=== PATIENT | male | born 1995 | race Caucasian/White ===

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

== ENCOUNTER 2018-01-29 20:57 | Emergency (ER) | payer SELFPAY ==
[~2018-01-29] VITALS: Ht 167.6 cm; Wt 49.9 kg
[2018-01-29 21:11] VITALS: Ht 167.6 cm; Wt 49.9 kg
[2018-01-29 22:12] LABS: UDS - AMPHET NEGATIVE QUAL (NEGATIVE); UDS - BARB NEGATIVE QUAL (NEGATIVE); UDS - BENZO NEGATIVE QUAL (NEGATIVE); UDS - COCAINE NEGATIVE QUAL (NEGATIVE); UDS - OPIATE NEGATIVE QUAL (NEGATIVE); UDS - PCP NEGATIVE QUAL (NEGATIVE); UDS - THC NEGATIVE QUAL (NEGATIVE)
[2018-01-29 22:18] LABS: APPEARANCE CLEAR (CLEAR); BILIRUBIN NEGATIVE (NEGATIVE); COLOR YELLOW (YELLOW); GLUCOSE NEGATIVE (NEGATIVE); KETONE NEGATIVE (NEGATIVE); NITRITE NEGATIVE (NEGATIVE); PROTEIN NEGATIVE (NEGATIVE); SPECIFIC GRAVITY 1.015 (1.005-1.020); UROBILINOGEN NORMAL (NORMAL)
[2018-01-29 22:21] LABS: BASOPHILS 0.3 % (0-2); EOSINOPHILS 0.6 % (0-7); HEMATOCRIT 41.8 % (42.0-54.0); HEMOGLOBIN 14.6 g/dL (13.5-17.5); IMMATURE GRANULOCYTES 0.2 % (0-5); LYMPHOCYTES 8.9 % (15-50); MCH 31.5 pg (26.0-34.0); MCHC 34.9 g/dL (31.0-37.0); MCV 90.3 fL (80.0-100.0); MEAN PLATELET VOLUME 10.2 fL (7.4-10.4); MONOCYTES 5.2 % (2-11); NEUTROPHILS 84.8 % (40-80); PLATELET COUNT 231 10x3/uL (130-400); RBC 4.63 10x6/uL (4.20-6.10); RDW 12.8 % (11.5-14.5); WBC 16.2 10x3/uL (4.8-10.8)
[2018-01-29 22:42] LABS: CALC OSMOLALITY 276 mosm/kg (275-300); CALCIUM 9.1 mg/dL (8.5-10.1); CARBON DIOXIDE 28.4 mmol/L (21.0-32.0); CHLORIDE - SERUM 104 mmol/L (98-107); GLUCOSE 103 mg/dL (74-106); POTASSIUM - SERUM 3.7 mmol/L (3.5-5.1); SODIUM 139 mmol/L (136-145); THYROID STIMULATING HORMONE 1.29 uIU/mL (0.36-3.74); UREA NITROGEN 10 mg/dL (7-18); eGFR NON AFRICAN AMERICAN > 90 mL/min (90-120)
[2018-01-30 01:20] VITALS: BP 119/72
== END 2018-01-30 02:52 | disposition other institution (70) ==
LOC: D.ER 20:57
PROVIDERS: Family Medicine
DX: T14.91XA Suicide attempt, initial encounter (principal); X83.8XXA Intentional self-harm by other specified means, initial encounter; Y93.89 Activity, other specified; Y92.831 Amusement park as the place of occurrence of the external cause; F32.9 Major depressive disorder, single episode, unspecified

== ENCOUNTER 2018-04-09 12:17 | Emergency (ER) | payer SELFPAY ==
[~2018-04-09] VITALS: Ht 167.6 cm; Wt 53.6 kg
[2018-04-09 12:37] VITALS: Ht 167.6 cm; Wt 53.6 kg
[2018-04-09 12:58] LABS: BILIRUBIN NEGATIVE (NEGATIVE); GLUCOSE NEGATIVE (NEGATIVE); NITRITE NEGATIVE (NEGATIVE); UROBILINOGEN NORMAL (NORMAL)
[2018-04-09 13:01] LABS: RED CELLS - URINE 0-5 /hpf (0-5)
[2018-04-09 13:05] LABS: APPEARANCE TURBID (CLEAR); COLOR DK YELLOW (YELLOW); KETONE SMALL mg/dL (NEGATIVE); PROTEIN 2+ mg/dL (NEGATIVE)
[2018-04-09 13:06] LABS: BACTERIA MODERATE /hpf (NONE SEEN); EPITHELIAL CELLS OCC /hpf (0-5); MUCUS <1+ /lpf (NONE SEEN); WHITE CELLS - URINE >50 /hpf (0-5)
[2018-04-09 13:44] VITALS: BP 122/074
[2018-04-10 07:23] LABS: HEPATITIS C ANTIBODY <0.1 S/CO RAT (0.0-0.9)
[2018-04-12 09:10] LABS: CHLAMYDIA TRACHOMATIS, NAA Negative (Negative)
== END 2018-04-09 13:45 | disposition home or self-care (01) ==
LOC: D.ER 12:17
PROVIDERS: Emergency Medicine
DX: R30.0 Dysuria (principal); N34.2 Other urethritis; F17.200 Nicotine dependence, unspecified, uncomplicated

== ENCOUNTER 2018-06-14 19:07 | Emergency (ER) | payer SELFPAY ==
[~2018-06-14] VITALS: Ht 167.6 cm; Wt 54.5 kg
[2018-06-14 19:31] VITALS: BP 136/77; Ht 167.6 cm; Wt 54.5 kg
== END 2018-06-14 23:36 | disposition left against medical advice (07) ==
LOC: D.ER 19:07
DX: R51 Headache (principal)

== ENCOUNTER 2018-08-12 15:16 | Emergency (ER) | payer SELFPAY ==
[~2018-08-12] VITALS: Ht 167.6 cm; Wt 54.5 kg
[2018-08-12 15:30] VITALS: Ht 167.6 cm; Wt 54.5 kg
[2018-08-12] MEDS ORDERED: TORADOL10 MG PO (19:36)
[2018-08-12 20:20] VITALS: BP 112/80
== END 2018-08-13 00:47 | disposition home or self-care (01) ==
LOC: D.ER 15:16
DX: S20.212A Contusion of left front wall of thorax, initial encounter (principal); W01.0XXA Fall on same level from slipping, tripping and stumbling without subsequent striking against object, initial encounter; Y93.89 Activity, other specified; Y92.89 Other specified places as the place of occurrence of the external cause